=== PATIENT | female | born 2000 | race American Indian/Alaskan Native ===

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

== ENCOUNTER 2020-07-10 17:44 | Emergency (ER) | payer MEDICAID, OTHER ==
--- NOTE | 2020-07-10 19:25 | EDM.PDOC ---
ED HPI GENERAL MEDICAL PROBLEM - General Chief Complaint: Fever Stated Complaint: BODY ACHES,SOB NO PERIOD THIS MONTH Time Seen by Provider: 07/10/20 18:03 Source of Information: Reports: Patient, RN Notes Reviewed History Limitations: Reports: No Limitations - History of Present Illness INITIAL COMMENTS - FREE TEXT/NARRATIVE: Patient is a 20-year-old female presenting to the emergency department with complaints of generalized body aches, sore throat, vomiting, mild cough, chills and ear discomfort. Symptoms have been occurring intermittently for the last few days. States that she works for a [employer] company which requires her to be evaluated and tested for viral illness before she will be allowed to go back to work. States that her family was sick with a viral illness so she is sure that is likely what she has but she is required to be evaluated. She denies any fever. States she is had a couple episodes of vomiting per day. Denies any abdominal pain or diarrhea. She also notes that she is about 10 days late on her period. A few days back she did take a home test and was found to be negative. She has otherwise quite regular with her periods. Throat Pain Score (Numeric/FACES): 4 - Related Data Allergies Allergy/AdvReac Type Severity Reaction Status Date / Time No Known Allergies Allergy Verified 07/10/20 17:59 Home Meds: Home Meds . [No Known Home Meds] 07/09/17 [History] Past Medical History - Past Surgical History HEENT Surgical History: Reports: Tonsillectomy Social & Family History - Tobacco Use Tobacco Use Status *Q: Never Tobacco User - Caffeine Use Caffeine Use: Reports: Soda - Recreational Drug Use Recreational Drug Use: No ED ROS GENERAL - Review of Systems Review Of Systems: See Below Constitutional: Reports: Chills, Fatigue. Denies: Fever HEENT: Reports: Ear Pain, Rhinitis, Throat Pain Respiratory: Reports: Cough. Denies: Shortness of Breath, Wheezing Cardiovascular: Reports: No Symptoms Endocrine: Reports: No Symptoms GI/Abdominal: Reports: Nausea, Vomiting. Denies: Abdominal Pain, Diarrhea : Reports: Irregular Menses. Denies: Dysuria, Pain Musculoskeletal: Reports: Other (Generalized body aches) Skin: Reports: No Symptoms Neurological: Reports: No Symptoms. Denies: Dizziness, Headache Psychiatric: Reports: No Symptoms Hematologic/Lymphatic: Reports: No Symptoms Immunologic: Reports: No Symptoms ED EXAM, GENERAL - Physical Exam Exam: See Below Exam Limited By: No Limitations General Appearance: Alert, WD/WN, No Apparent Distress Ears: Normal External Exam, Normal Canal, Hearing Grossly Normal, Normal TMs Throat/Mouth: Normal Inspection, Normal Lips, Normal Teeth, Normal Gums, Normal Oropharynx, Normal Voice, No Airway Compromise Respiratory/Chest: No Respiratory Distress, Lungs Clear, Normal Breath Sounds, No Accessory Muscle Use, Chest Non-Tender Cardiovascular: Normal Peripheral Pulses, Regular Rate, Rhythm, No Edema, No Gallop, No JVD, No Murmur, No Rub GI/Abdominal: Normal Bowel Sounds, Soft, Non-Tender, No Organomegaly, No Distent ion, No Abnormal Bruit, No Mass Neurological: Alert, Oriented, CN II-XII Intact, Normal Cognition, Normal Gait, Normal Reflexes, No Motor/Sensory Deficits Psychiatric: Normal Affect, Normal Mood Skin Exam: Warm, Dry, Intact, Normal Color, No Rash Course - Vital Signs Last Recorded V/S: Last Vital Signs Temp 99.5 F 07/10/20 17:57 Pulse 75 07/10/20 17:57 Resp 16 07/10/20 17:57 BP 136/72 07/10/20 17:57 Pulse Ox 96 07/10/20 17:57 - Orders/Labs/Meds Labs: Laboratory Tests 07/10/20 07/10/20 07/10/20 Range/Units 19:26 19:26 19:26 Urine Color Yellow (Yellow) Urine Appearance Clear (Clear) Urine pH 7.0 (5.0-8.0) Ur Specific [place] > or = 1.030 (1.005-1.030) Urine Protein Negative (Negative) Urine Glucose (UA) Negative (Negative) Urine Ketones Negative (Negative) Urine Occult Blood Negative (Negative) Urine Nitrite Negative (Negative) Urine Bilirubin Negative (Negative) Urine Urobilinogen 0.2 (0.2-1.0) Ur Leukocyte Esterase Negative (Negative) Urine RBC 0-5 (0-5) /hpf Urine WBC 0-5 (0-5) /hpf Ur Squamous Epith Cells 0-5 (0-5) /hpf Amorphous Sediment Moderate H (NOT SEEN) /hpf Urine Bacteria Few (FEW) /hpf Urine Mucus Few (FEW) /hpf Urine HCG, Qual Negative (NEGATIVE) Influenza Type A RNA Negative (NEGATIVE) Influenza Type B RNA Negative (NEGATIVE) SARS-CoV-2 RNA (LOUISE) Negative (NEGATIVE) - Re-Assessments/Exams Free Text/Narrative Re-Assessment/Exam: Patient is a 20-year-old female presenting to the emergency department for evaluation with regards to generalized body aches, occasional cough, vomiting, nausea, mild ear discomfort, sore throat, and being 10 days late on her period. She states that her job requires her to be evaluated and tested for Covid and flu. States the symptoms have been fairly mild. On exam, she appears to be in no distress. Exam findings are grossly unremarkable. I have ordered influenza test, Covid test, urinalysis,, and urine hCG 07/10/20 20:32 Urinalysis was negative for infection. Urine hCG, influenza, and Covid testing were negative. Patient states that she does have Zofran at home that she may use as needed. I will provide her a note for light duty for work till Sunday. Discharge instructions as documented Departure - Departure Time of Disposition: 20:32 Disposition: Home, Self-Care 01 Condition: Good Clinical Impression: Viral illness - Discharge Information *PRESCRIPTION DRUG MONITORING PROGRAM REVIEWED*: No *COPY OF PRESCRIPTION DRUG MONITORING REPORT IN PATIENT YESICA: No Instructions: Viral Illness, Adult Referrals: Suellen Renee PA-C [Primary Care Provider] - Forms: ED Department Discharge, ED Return to Work/School Form Additional Instructions: You were seen in the emergency department today for intermittent body aches, cough, chills, vomiting, sore throat, and ear pain, as well as being 10 days late on your.. Work-up included urinalysis, test, and influenza and Covid testing. Results of your work-up were found to be normal. Your Covid influenza and test were all negative. As we discussed, you are likely suffering from a viral illness. You may use the Zofran that you have at home as needed for nausea vomiting. Recommend clear liquid diet for 24 to 72 hours. Return to ER for any new or worsening symptoms. Sepsis Event Note (ED) - Evaluation Sepsis Screening Result: No Definite Risk - Focused Exam Vital Signs: Vital Signs Temp Pulse Resp BP Pulse Ox 07/10/20 17:57 99.5 F 75 16 136/72 96
[2020-07-10 20:07] LABS: CORONAVIRUS COVID-19 NAA NEGATIVE (NEGATIVE)
== END 2020-07-10 20:40 | disposition home or self-care (01) ==
LOC: JD.ED 17:44
DX: B34.9 Viral infection, unspecified (principal); Z20.822 Contact with and (suspected) exposure to COVID-19
CPT/HCPCS: 0240U; 81001; 81025; 99284; 99282